=== PATIENT | female | born 1955 ===

== ENCOUNTER → 2022-01-16 | Outpatient (CLI) | payer MEDICARE, OTHER ==
--- NOTE | 2022-01-16 10:48 | RAD ---
INDICATION: Screening for osteopenia/osteoporosis. Reason: MENOPAUSAL / Spl. Instructions: / Histor y: COMPARISON: None. TECHNIQUE: Bone densitometry was performed through the lumbar spine and proximal femur. IMPRESSION: Lumbar Spine: BMD: 1.14 T-Score: 0 Range: Normal Proximal Femur: BMD: 0.84 T-Score: -0.9 Range: On the border between osteopenia and osteoporosis. World Health Organization Criteria for Bone Density: T-Score: > -1.0: Normal Range < -1.0 to -2.5: Osteopenic Range < -2.5: Osteoporotic Range Electronically signed by: Adria Joyner MD (01/16/2022 10:46 AM) [id number]
== END ==
LOC: DXRAD 09:52
PROVIDERS: ATTEND Family Medicine
DX: M85.88 Other specified disorders of bone density and structure, other site (principal); N95.1 Menopausal and female climacteric states
CPT/HCPCS: 77080